=== PATIENT | male | born 1930 | race Caucasian/White ===

== ENCOUNTER 2016-07-07 09:23 | Inpatient (IN) | payer OTHER ==
[~2016-07-07] VITALS: Ht 185.4 cm; Wt 86.4 kg
--- NOTE | ~2016-07-07 | EKG ---
[address] [address] ELECTROCARDIOGRAM REPORT Name: KENNEY MCNULTY Room #: 215-P ADM IN M.R.#: [id number] Admission: 07/07/16 Attend Phys: Nba Leon MD Discharge: Date of : [birth year] Report #: [id number] THIS REPORT FOR: //name// [facility] ED Test Date: 2016-07-07 Test Time: 09:57:56 Pat Name: KENNEY MCNULTY Department: Room: 215 Gender: M Nylon Operator: Sara URRUTIA : 1930 Requested By: Keyla Paiz Order Number: [id number] MD: Tulio Duong Measurements Intervals [place] Rate: 43 P: -45 [place]: QRS: -54 QRSD: 109 T: 16 QT: 470 QTc: 398 Interpretive Statements AV block, 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
--- NOTE | ~2016-07-07 | HC ---
[facility] [place] [address] CONSULTATION Name: HAMLETKENNEY Joyce Room #: 215-P [facility] IN ..#: [id number] Admission: 07/07/16 Attend Phys: Nba Leon MD Discharge: 07/12/16 Date of : [birth year] Report #: [id number] THIS REPORT FOR: //name// CC: Howard Leon DICTATED BY: Trinidad KAMINSKI DATE OF SERVICE: 07/10/2016 REASON FOR CONSULT: Left knee pain. CONSULTED BY: Dr. Ojeda. HISTORY OF PRESENT ILLNESS: The patient is an 86-year-old man with a history of hypertension and coronary artery disease, who presented to the emergency room with shortness of breath as he was being treated for syncope and chest pain. At the hospital, he complained of left knee pain that is progressively getting worse, in addition to swelling. 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 No current injury. Decrease of range of motion, increase of swelling in the last 2 weeks. Imaging of the left knee done at [facility] on 07/09/2016. Three views of the left knee demonstrated degenerative arthrosis of the left knee, with no acute appearing osseous findings. LABORATORY DATA: White blood cell count 7, platelet count 133. PAST SURGICAL HISTORY: Include AAA, knee surgery. PAST MEDICAL HISTORY: Hypertension, dyslipidemia, and peripheral vascular disease. SOCIAL HISTORY: The patient lives in an assisted living facility by himself. Denies alcohol or nicotine use. ASSESSMENT: With the left knee demonstrates +2 edema of the left knee, neurovascularly intact in the lower left extremity. Tender to palpation along the joint line of the left knee. Range of motion as follows -15 to 105 degrees. No noted. SKIN: Dry and intact and warm to touch. No redness. IMPRESSION: Left knee hemarthrosis with arthritis. PLAN: I have aspirated the knee and I obtained 35 mL of blood-tinged fluid, no [address] [address] CONSULTATION Name: KENNEY MCNULTY Room #: 215-P [facility] IN M.R.#: [id number] Admission: 07/07/16 Attend Phys: Nba Leon MD Discharge: 07/12/16 Date of : [birth year] Report #: [id number] cloudiness noted. In addition to the aspiration, I proceeded to inject with 80 mg of Depo-Medrol, as well as 0.5% of Marcaine 3 mL. Several minutes after the injection, the patient stated his knee felt much better. Injection was done under sterile technique and compression was applied immediately afterwards. The patient tolerated treatment well. We will follow up with the patient tomorrow. Thank you for the consult. <ELECTRONICALLY SIGNED> By: Andre Ramirez MD 07/28/16 1420 2249 171 Andre Ramirez MD /elena
--- NOTE | ~2016-07-07 | CATHLAB ---
[facility] [place] [address] INVASIVE PROCEDURE REPORT Name: KENNEY MCNULTY Room #: 215-P [facility] IN [facility]#: [id number] Admission: 07/07/16 Attend Phys: Nba Leon MD Discharge: Date of : [birth year] Date of Service: 07/10/16 1338 Report #: [id number] THIS REPORT FOR: //name// CC: Howard Leon DATE OF SERVICE: 07/10/2016 PROCEDURES: 1. Dual-chamber pacer implantation. 2. Supervision of conscious sedation. INDICATIONS: An 86-year-old gentleman with completely AV block 3.5 days post discontinuation of beta blockade. Symptomatic of syncope, lightheadedness and weakness. DEVICE: a. [employer] dual-chamber pacer model [id number], serial number [id number]. b. Right atrial lead, [employer] , serial number [id number]. c. Right ventricular lead, [employer] , serial number [id number]. FINDINGS: a. P-wave amplitude 2.8 millivolts with an impedance of 320 ohms, a catheter threshold of 1.5 at a pulse width of 0.4. b. Right ventricular R-wave 10.2 with an impedance of 473, threshold of 0.75 and a pulse width of 0.4. SETTINGS: VVI mode 60 beats per minute will be changed to DDDR in the a.m. DESCRIPTION OF PROCEDURE: After informed consent was obtained, the patient was prepped and draped in usual sterile manner. Continuous oximetric and electrocardiographic monitoring ensued. A 2 mg of Versed and 25 of Demerol were given for conscious sedation. A 1% lidocaine was then instilled in the proposed incision site and periodically redosed subcutaneously. Utilizing standard sharp and blunt dissection, a pocket was generated and subclavian vein was accessed in a modified Seldinger 2-stick technique. Leads were then placed fluoroscopically; capture and sensing thresholds were then verified. The device, skin, antibiotic pocket were then irrigated with antibiotic solution. The device was then placed in the chest and 3-layer closure ensued with deep fascial in subcutaneous levels with nonabsorbable running locking stitch and the skin was a 4-0 absorbable subcuticular. Dermabond was then utilized on the skin externally 4 x 4 Op-site were placed. No complications. [address] [address] INVASIVE PROCEDURE REPORT Name: KENNEY MCNULTY Room #: 215-P [facility] IN ..#: [id number] Admission: 07/07/16 Attend Phys: Nba Leon MD Discharge: Date of : [birth year] Date of Service: 07/10/16 1338 Report #: [id number] ESTIMATED BLOOD LOSS: Less than 10 mL. <ELECTRONICALLY SIGNED> By: Bernard Villarreal MD 07/11/16 2224 1338 2322 Bernard Villarreal MD /nt
--- NOTE | ~2016-07-07 | 2DMMODE ---
[facility] [place] [address] 2 D/M-MODE ECHOCARDIOGRAM Name: HAMLETKENNEY Cook Room #: 215-P [facility]#: [id number] Admission: 07/07/16 Attend Phys: Nba Leon MD Discharge: Date of : [birth year] Date of Service: 07/08/16 0903 Report #: [id number] THIS REPORT FOR: //name// Transthoracic Echocardiography Ordering physician: Nba Leon Referring physician: Howard Sinclair [employer] Music Director: Aysha Rehman Indications/History: Third degree heart block, short of breath, CHF. Hx: COPD, CAD, HTN, HLP BP: 174 / HR: 43bpm Height: 73in Weight: 200.6lb 38 Study data: M-mode, complete 2D, complete spectral Doppler, and color Doppler. Location: Bedside. Routine. Image quality was adequate. 2D measurements Normal Normal LVID ED 48mm 36-57 IVS ED 13.6mm 6-11 LVID ES 26.4mm 23-40 LVPW ED 14.4mm 6-11 LA volume 34ml/m2 16-28 AoRoot diam 37mm 21-37 index ED LVOT diameter 23mm 18-23 Findings: Left ventricle: The cavity size was normal. Wall thickness was increased in a pattern of mild LVH. Systolic function was hyperdynamic. The estimated ejection fraction was in the range of 70%. Wall motion was normal. Increased flow velocities noted near the LVOT with a peak pressure gradient of 43mmHg. Right ventricle: The cavity size was normal. Systolic function was normal. Right atrium: The atrium was normal in size. Left atrium: The atrium was mildly dilated. Volume index: 34ml/m2 (S). Aortic valve: Thickened andmoderate to severelycalcified [facility] [address] [place] [address] 2 D/M-MODE ECHOCARDIOGRAM Name: KENNEY MCNULTY Room #: 215-P [facility] IN Bib#: [id number] Admission: 07/07/16 Attend Phys: Nba Leon MD Discharge: Date of : [birth year] Date of Service: 07/08/16 0903 Report #: [id number] leaflets. Doppler: There was moderate stenosis. Valve area by continuity equation is 1.3cm2. Mild regurgitation. Peak velocity: 519.6cm/s (S). Mean gradient: 58.1mm Hg (S). Peak gradient: 108mm Hg (S). Mitral valve: Moderately calcified annulus. Moderately thickened leaflets . Doppler: The findings are consistent with verymild stenosis. Mild regurgitation. Peak E-wave velocity: 153.8cm/s. Peak gradient: 9.5mm Hg (D). Peak A-wave velocity: 164.6cm/s. Tricuspid valve: Structurally normal valve. Doppler: There was no evidence for stenosis. Mild regurgitation. Regurgitant peak velocity: 320.6cm/s. Peak RV-RA gradient: 41mm Hg (S). Pulmonic valve: Structurally normal valve. Doppler: There was no evidence for stenosis. Mild regurgitation. Pericardium: A small pericardial effusion was identified. Pleura: There was a right pleural effusion. There was a left pleural effusion. Aorta: Aortic root: The aortic root was normal in size. Pulmonary artery: Systolic pressure was estimated to be 46mm Hg. Diastolic function: Doppler parameters are consistent with abnormal left ventricular relaxation (grade 1 diastolic dysfunction). Systemic veins: Inferior vena cava: The vessel was normal in size; the respirophasic diameter changes were in the normal range (= 50%). Conclusions 1. Left ventricle: The cavity size was normal. Wall thickness was increased in a pattern of mild LVH. Systolic function was hyperdynamic. The estimated ejection fraction was in the range of 70%. Wall motion was normal. 2. Left atrium: The atrium was mildly dilated. 3. Aortic valve: Thickened andmoderate to severelycalcified leaflets. There was moderate stenosis. Valve area by continuity equation is 1.3cm2. Mild regurgitation. 4. Mitral valve: Moderately calcified annulus. Moderately thickened leaflets . Mild regurgitation. 5. Pulmonic valve: Mild regurgitation. 6. Tricuspid valve: Mild regurgitation. 7. Pericardium, extracardiac: A small pericardial effusion [facility] [address] [place] [address] 2 D/M-MODE ECHOCARDIOGRAM Name: KENNEY MCNULTY Room #: 215-P [facility] IN [facility]#: [id number] Admission: 07/07/16 Attend Phys: Nba Leon MD Discharge: Date of : [birth year] Date of Service: 07/08/16 0903 Report #: [id number] was identified. There was a right pleural effusion. There was a left pleural effusion. 8. Pulmonary arteries: Systolic pressure was estimated to be 46mm Hg. <ELECTRONICALLY SIGNED> By: Bernard Villarreal MD 07/08/16 1015 0903 Beth Villarreal MD /shayna
--- NOTE | ~2016-07-07 | EKG ---
[address] [place] [address] ELECTROCARDIOGRAM REPORT Name: KENNEY MCNULTY Room #: 215-P [facility] IN M.R.#: [id number] Admission: 07/07/16 Attend Phys: Nba Leon MD Discharge: 07/12/16 Date of : [birth year] Report #: [id number] THIS REPORT FOR: //name// [facility] Test Date: 2016-07-11 Test Time: 07:02:35 Pat Name: KENNEY MCNULTY Department: Room: 215 Gender: M Raw Material Planner: isaac : 1930 Requested By: Bernard Villarreal Order Number: [id number] MD: Osmel Ibarra Measurements Intervals [place] Rate: 60 P: -59 [place]: 88 QRS: -54 QRSD: 127 T: 119 QT: 477 QTc: 477 Interpretive Statements Ventricular-paced rhythm No further analysis attempted due to paced rhythm no previous ECGs available for comparison Electronically Signed On 07-14-2016 8:17:06 HEALTH AND SAFETY INSTRUCTOR by Osmel Ibarra [email or web address] <ELECTRONICALLY SIGNED> By: Osmel Ibarra MD, [facility] 07/14/16 0817 1 1 Osmel Ibarra MD, [facility] /EPI
--- NOTE | ~2016-07-07 | HC ---
[facility] [address] CONSULTATION Name: HAMLETKENNEY Joyce Room #: 215-P [facility] IN ..#: [id number] Admission: 07/07/16 Attend Phys: Nba Leon MD Discharge: Date of : [birth year] Report #: [id number] THIS REPORT FOR: //name// CC: Howard Leon DATE OF SERVICE: 07/07/2016 HISTORY OF PRESENT ILLNESS: This is a very pleasant 86-year-old male patient presented because of increasing shortness of breath. The patient has a history of hypertension, dyslipidemia, peripheral vascular disease and coronary artery disease in the chart, but when discussing with him, he denies any cardiac history in the past. He is not having any significant orthopnea or PND, but noticed that he had been having episodes of blacking out for approximately 2-3 weeks. These are not positional in nature and not associated with coughing or anything else. He mentioned that he would lose consciousness and this was brought up by his children. He did not have any chest pain, pressure, tightness, or heaviness. No orthopnea, PND, syncope or near syncope. He presented to the emergency room and was found to be in complete heart block with a satisfactory blood pressure. Apparently, there is an infiltrate on his chest x-ray and had an elevated BNP. He denies any recent fever or chills, but has had a nonproductive cough. No syncope or near syncope prior to the last 2-3 weeks. PAST MEDICAL HISTORY: Significant for: 1. Hypertension. 2. Dyslipidemia. 3. Peripheral vascular disease. PAST SURGICAL HISTORY: The abdominal aortic aneurysm. SOCIAL HISTORY: The patient lives in an assisted living facility by himself. Does not smoke, does not consume alcohol or recreational drugs. ELECTROCARDIOGRAM: Completely heart block with a narrow junctional escape rhythm at 45-50. MEDICATIONS AT HOME: Metoprolol, lisinopril, hydrochlorothiazide, Proscar, alpha rayo, Zetia, and Mevacor. REVIEW OF SYSTEMS: Except for symptoms previously mentioned and those commensurate with comorbid states, the 10-point review of system is negative. RADIOLOGIC: Evidence of a left basilar infiltrate with pleural effusion present. [facility] [address] [place] [address] CONSULTATION Name: KENNEY MCNULTY Room #: 215-P [facility] IN ..#: [id number] Admission: 07/07/16 Attend Phys: Nba Leon MD Discharge: Date of : [birth year] Report #: [id number] LABORATORY DATA: Demonstrates a BUN and creatinine of 34 and 2.1 respectively. Hemoglobin 11.7, hematocrit 36.3 with a platelet count of 171,000. Troponin is 0.09. PHYSICAL EXAMINATION: GENERAL: Shows a white male, resting comfortably, in no acute distress. HEENT: Normocephalic, atraumatic. Pupils are equal, round, reactive to light and accommodation. Extraocular muscles are intact. Sclerae and conjunctivae are anicteric. NECK: JVD is normal. Carotid upstrokes are bilaterally symmetrical. No bruits are heard. No thyromegaly. No lymphadenopathy. LUNGS: Nontachypneic. No wheezes or rhonchi are noted, but there appears to be some basilar crepitance with dry crackles. CARDIAC: Demonstrates a regular rhythm. First heart sound is variable. Systolic murmur grade 2/6 is noted from the base of the apex to the axilla. No diastolic murmurs are identified. ABDOMEN: Soft, nontender, nondistended. Normal bowel sounds. EXTREMITIES: Without cyanosis, clubbing or edema. Distal pulses are intact. DTR symmetrical. NEUROLOGIC: Cranial nerves 2-12 are grossly normal and symmetrical. PSYCHIATRIC: Alert, oriented with normal affect. SKIN: Warm and dry. IMPRESSION: 1. Shortness of breath, multifactorial, the infiltrate is clearly an issue and that will be addressed by primary care. 2. Third-degree heart block. I suspect this what has been the issue over the last several weeks with syncope and near syncope. For the moment, I am going to stop the metoprolol and I am going to monitor since his blood pressure was satisfactory. We will see if the beta rayo withdraw will avoid permanent pacing, though we will make that final decision on . If he needs a pacer, we will implant it on Wednesday. If not, then we will continue with medical regimen. I am awaiting the echocardiogram to be performed. 3. Hypertension, elevated here now, it is clearly a reflex response to the bradyarrhythmias. I am going to put him back on his medicines as he has not had any of his medications today, but only the lisinopril, the hydrochlorothiazide and the alpha rayo. 4. Peripheral vascular disease, has a history femoral stent and an abdominal aortic aneurysm repair in the past. 5. Hypoxemia, multifactorial, see above. 6. Elevated BNP, but he has abnormal creatinine and he has an infiltrate, both [facility] [address] [place] [address] CONSULTATION Name: KENNEY MCNULTY Room #: 215-P ADM IN M.R.#: [id number] Admission: 07/07/16 Attend Phys: Nba Leon MD Discharge: Date of : [birth year] Report #: [id number] of which can cause this. He is lying flat in bend without any tachypnea and clinical congestive heart failure is not evident. <ELECTRONICALLY SIGNED> By: Bernard Villarreal MD 07/08/16 0929 1852 0151 Bernard Villarreal MD /nt
[~2016-07-07 09:23] MED LIST: [UNRECOGNIZED DRUG - REMARK]
[2016-07-07 09:31] VITALS: BP 173/59
[2016-07-07 09:57] LABS: ABSOLUTE NEUTROPHILS 7.2 thou/uL (1.4-8.2); BASOPHILS 0.4 % (0.0-2.0); EOSINOPHILS 0.9 % (0.0-3.0); HEMATOCRIT 36.3 % (42.0-52.0); HEMOGLOBIN 11.7 gm/dL (14.0-18.0); LYMPHOCYTES 16.7 % (24.0-44.0); MANUAL DIFF NO; MCH 29.1 pg (26.0-34.0); MCHC 32.2 % (28.0-37.0); MCV 90.1 fL (80.0-100.0); MONOCYTES 7.6 % (1.0-8.0); PLATELET COUNT 171 thou/uL (150-400); POLYS 74.4 % (36.0-66.0); RBC 4.03 mil/uL (4.50-6.00); WBC 9.7 thou/uL (4.0-11.0)
[2016-07-07 10:02] LABS: CALCIUM 9.3 mg/dL (8.5-10.1); CREATININE 2.1 mg/dL (0.6-1.3); POTASSIUM 4.2 mmol/L (3.5-5.1)
[2016-07-07 10:02] LABS: ABG SAMPLE TYPE ARTERIAL; BE(vivo) -1.2 mmol/L (-2 to +3); HCO3 25.2 mmol/L (22.0-26.0); LACTATE 1.61 mmol/L (0.5-2.0); O2(CT) 15.9 mL/dL (15.0-23.0); PCO2 49.3 mmHg (35.0-45.0); PO2 85.4 mmHg (80.0-100.0); STICK SITE L.RADIAL; pH 7.326 (7.360-7.450); sO2 95.7 % (92.0-98.0); tCO2 26.7 mmol/L (24.0-30.0)
[2016-07-07 10:15] LABS: ALBUMIN 2.7 g/dL (3.4-5.0); TOTAL BILIRUBIN 0.4 mg/dL (<0.1-1.0); TOTAL PROTEIN 6.1 g/dL (6.4-8.2); TROPONIN-I 0.09 ng/mL (<0.04-0.07)
[2016-07-07 16:50] VITALS: BP 199/73
[2016-07-07] MEDS ORDERED: UNICOMPLEX M TA1 TA1 PO (18:04)
[2016-07-07] MEDS ORDERED: HYDROCHLOROTHIA25 M2 PO (18:04)
[2016-07-07] MEDS ORDERED: FINASTERIDE5 MG PO (18:04)
[2016-07-07] MEDS ORDERED: ZETIA10 MG PO (18:04)
[2016-07-07] MEDS ORDERED: LISINOPRIL10 MG PO (18:04)
[2016-07-07] MEDS ORDERED: ASPIR 8181 MG PO (18:05)
[2016-07-07] MEDS ORDERED: CARDURA4 MG PO (18:05)
[2016-07-07] MEDS ORDERED: LOVASTATIN 20 M20 MG PO (18:05)
[2016-07-07 19:40] VITALS: BP 208/54
[2016-07-08 00:01] VITALS: BP 184/42
[2016-07-08 04:10] LABS: HEMATOCRIT 29.2 % (42.0-52.0); MCHC 32.3 % (28.0-37.0); RBC 3.25 mil/uL (4.50-6.00); RDW 15.8 % (10.5-14.5)
[2016-07-08 04:12] VITALS: BP 174/38
[2016-07-08 04:19] LABS: CALCIUM 8.6 mg/dL (8.5-10.1); POTASSIUM 4.2 mmol/L (3.5-5.1)
[2016-07-08 04:30] LABS: HEMOGLOBIN 9.4 gm/dL (14.0-18.0)
[2016-07-08 07:10] VITALS: BP 164/45
[2016-07-08 11:40] VITALS: BP 163/72
[2016-07-08 16:10] VITALS: BP 187/47
[2016-07-08 21:04] VITALS: BP 180/90
[2016-07-09 06:07] VITALS: BP 182/94
[2016-07-09 09:30] VITALS: BP 141/86
[2016-07-09 11:25] VITALS: BP 156/39
[2016-07-09 12:27] VITALS: BP 142/66
[2016-07-09 17:40] VITALS: BP 157/36
[2016-07-09 20:02] VITALS: BP 154/57
[2016-07-10] VITALS (10 sets, daily range): BP systolic 131–182; BP diastolic 42–66
[2016-07-10 05:04] LABS: ABSOLUTE NEUTROPHILS 3.4 thou/uL (1.4-8.2); BASOPHILS 0.4 % (0.0-2.0); EOSINOPHILS 3.6 % (0.0-3.0); HEMATOCRIT 30.1 % (42.0-52.0); HEMOGLOBIN 9.6 gm/dL (14.0-18.0); LYMPHOCYTES 13.5 % (24.0-44.0); MCHC 31.9 % (28.0-37.0); MCV 90.9 fL (80.0-100.0); MONOCYTES 9.1 % (1.0-8.0); PLATELET COUNT 121 thou/uL (150-400); POLYS 73.4 % (36.0-66.0); RBC 3.31 mil/uL (4.50-6.00); RDW 15.6 % (10.5-14.5); WBC 4.6 thou/uL (4.0-11.0)
[2016-07-10 05:18] LABS: MANUAL DIFF NO
[2016-07-10 05:27] LABS: CALCIUM 8.9 mg/dL (8.5-10.1); POTASSIUM 4.3 mmol/L (3.5-5.1)
[2016-07-10 06:36] LABS: LARGE PLATELETS OCCASIONAL
[2016-07-11 03:43] VITALS: BP 150/59
[2016-07-11 08:00] VITALS: BP 130/50
[2016-07-11 08:25] VITALS: BP 130/46
[2016-07-11 09:17] LABS: HEMATOCRIT 31.7 % (42.0-52.0); HEMOGLOBIN 10.3 gm/dL (14.0-18.0); MCH 29.2 pg (26.0-34.0); MCHC 32.6 % (28.0-37.0); MCV 89.6 fL (80.0-100.0); PLATELET COUNT 141 thou/uL (150-400); RBC 3.54 mil/uL (4.50-6.00); RDW 15.3 % (10.5-14.5); WBC 5.2 thou/uL (4.0-11.0)
[2016-07-11 09:19] LABS: MANUAL DIFF YES
[2016-07-11 09:31] LABS: ALBUMIN 2.3 g/dL (3.4-5.0); CALCIUM 9.1 mg/dL (8.5-10.1); CREATININE 2.3 mg/dL (0.6-1.3); POTASSIUM 5.1 mmol/L (3.5-5.1); TOTAL BILIRUBIN 0.3 mg/dL (<0.1-1.0); TOTAL PROTEIN 5.6 g/dL (6.4-8.2)
[2016-07-11 09:56] LABS: ABSOLUTE NEUTROPHILS 4.9 thou/uL (1.4-8.2); ANISOCYTOSIS 1+; POIKILOCYTOSIS SLIGHT; POLYCHROMASIA OCCASIONAL; TOTAL CELL COUNT 100
[2016-07-11 12:11] VITALS: BP 120/50
[2016-07-11 20:00] VITALS: BP 155/58
[2016-07-11 23:59] VITALS: BP 151/60
[2016-07-12 04:05] LABS: HEMATOCRIT 30.2 % (42.0-52.0); HEMOGLOBIN 9.7 gm/dL (14.0-18.0); MCHC 32.1 % (28.0-37.0); MCV 90.6 fL (80.0-100.0); PLATELET COUNT 133 thou/uL (150-400); RBC 3.34 mil/uL (4.50-6.00); RDW 15.5 % (10.5-14.5)
[2016-07-12 04:15] LABS: MANUAL DIFF YES
[2016-07-12 04:33] LABS: POTASSIUM 4.8 mmol/L (3.5-5.1)
[2016-07-12 04:34] LABS: ALBUMIN 2.2 g/dL (3.4-5.0); CALCIUM 8.9 mg/dL (8.5-10.1); CREATININE 2.5 mg/dL (0.6-1.3); TOTAL BILIRUBIN 0.2 mg/dL (<0.1-1.0); TOTAL PROTEIN 5.3 g/dL (6.4-8.2)
[2016-07-12 05:18] VITALS: BP 153/64
[2016-07-12 06:23] LABS: ABSOLUTE NEUTROPHILS 6.6 thou/uL (1.4-8.2); PLATELET ESTIMATE NORMAL; TOTAL CELL COUNT 100
[2016-07-12 08:10] VITALS: BP 164/61
[2016-07-12 11:39] VITALS: BP 131/46
[2016-07-12] MEDS ORDERED: HYDROCODON-ACE1 EAC7 PO (13:51)
[2016-07-12] MEDS ORDERED: NORCO 5-325 TA1 EACH PO (14:05)
[2016-07-12] MEDS ORDERED: TOPROL XL25 MG PO (14:20)
[2016-07-12 15:22] VITALS: BP 146/59
== END 2016-07-12 16:47 | DRG 242 ==
LOC: ER 09:23 → EROBS 10:31 → 2N 10:31
PROVIDERS: Emergency Medicine; Hospitalist; Internal Medicine; Nurse Practitioner Family; Physician Assistant
PROC: 02HK3JZ Insertion of Pacemaker Lead into Right Ventricle, Percutaneous Approach (ICD-10-PCS; principal; 2016-07-10)
PROC: 0S9D3ZX Drainage of Left Knee Joint, Percutaneous Approach, Diagnostic (ICD-10-PCS; principal; 2016-07-10)
PROC: 02H63JZ Insertion of Pacemaker Lead into Right Atrium, Percutaneous Approach (ICD-10-PCS; principal; 2016-07-10)
PROC: 0JH606Z Insertion of Pacemaker, Dual Chamber into Chest Subcutaneous Tissue and Fascia, Open Approach (ICD-10-PCS; principal; 2016-07-10)
DX: I44.2 Atrioventricular block, complete (principal); I50.33 Acute on chronic diastolic (congestive) heart failure; J96.01 Acute respiratory failure with hypoxia; E43 Unspecified severe protein-calorie malnutrition; J15.6 Pneumonia due to other Gram-negative bacteria; N17.9 Acute kidney failure, unspecified; I13.0 Hypertensive heart and chronic kidney disease with heart failure and stage 1 through stage 4 chronic kidney disease, or unspecified chronic kidney disease; R78.81 Bacteremia; M25.062 Hemarthrosis, left knee; J44.9 Chronic obstructive pulmonary disease, unspecified; Z79.82 Long term (current) use of aspirin; Z79.899 Other long term (current) drug therapy; E78.5 Hyperlipidemia, unspecified; I73.9 Peripheral vascular disease, unspecified; I25.10 Atherosclerotic heart disease of native coronary artery without angina pectoris; N18.9 Chronic kidney disease, unspecified; Z68.25 Body mass index [BMI] 25.0-25.9, adult; I35.0 Nonrheumatic aortic (valve) stenosis; M17.12 Unilateral primary osteoarthritis, left knee
CPT/HCPCS: 10081

== ENCOUNTER 2016-07-14 23:20 | Inpatient (IN) | payer OTHER ==
[~2016-07-14] VITALS: Ht 182.9 cm; Wt 85.7 kg
--- NOTE | ~2016-07-14 | EKG ---
[address] [place] [address] ELECTROCARDIOGRAM REPORT Name: KENNEY MCNULTY Room #: 451-P ADM IN M.R.#: [id number] Admission: 07/15/16 Attend Phys: Aurea Bailey Discharge: Date of : [birth year] Report #: [id number] THIS REPORT FOR: //name// [facility] ED Test Date: 2016-07-14 Test Time: 23:28:04 Pat Name: KENNEY MCNULTY Department: Room: [facility] Gender: M Technical Support Technician: GERARDO : 1930 Requested By: Darline Guthrie Order Number: [id number] MD: Tulio Duong Measurements Intervals [place] Rate: 83 P: 29 [place]: 180 QRS: -47 QRSD: 127 T: 122 QT: 388 QTc: 456 Interpretive Statements Atrial-sensed ventricular-paced rhythm No further analysis attempted due to paced rhythm Compared to ECG 07/11/2016 07:02:35 No significant changes Electronically Signed On 07-15-2016 8:23:01 CHIMNEY MECHANIC by Tulio Duong [email or web address] <ELECTRONICALLY SIGNED> By: Tulio Duong MD 07/15/16 0823 27 27 Tulio Duong MD /KEO
--- NOTE | ~2016-07-14 | HC ---
[facility] [place] [address] CONSULTATION Name: HAMLETKENNEY Cook Room #: 451-P [facility] IN ..#: [id number] Admission: 07/15/16 Attend Phys: Aurea Bailey Discharge: Date of : [birth year] Report #: [id number] THIS REPORT FOR: //name// CC: Howard Bailey HISTORY OF PRESENT ILLNESS: This is a very pleasant 86-year-old gentleman with known sick sinus syndrome and had AV block last week and underwent permanent pacemaker implantation. The patient presented with some degree of heart failure and was diuresed and felt to be secondary to the AV block. He had been having symptoms for quite some time prior to that. He was discharged in improved and stable condition post pacer implantation and apparently after discharge in the intermediate, he started developing more shortness of breath. He stated stating that he felt lightheaded at times, but no palpitations per se. On the day of transfer, on admission, he was found to have a rapid ventricular response. Upon evaluation in the emergency room, he was in atrial fibrillation with rapid rate, rate was slowed by use of intravenous diltiazem. The patient denied any chest pain, pressure, tightness, heaviness or fullness at this time. PAST MEDICAL HISTORY: Significant for: 1. Hypertension. 2. AV block. 3. Degenerative joint disease. 4. History of community-acquired pneumonia. 5. Chronic kidney disease. 6. Coronary artery disease. ALLERGIES: No known drug allergies. PAST SURGICAL HISTORY: Significant for: 1. Permanent pacemaker implantation. 2. AAA repair 10 years ago. 3. Left knee injections. 4. Vascular stent placed in the leg. MEDICATIONS: Hydrocodone, metoprolol 25 b.i.d., hydrochlorothiazide, multivitamin, Zetia, finasteride, lovastatin, doxazosin, and aspirin. SOCIAL HISTORY: The patient is a former smoker, does not currently smoke now. Does not consume alcohol. Does not follow a particular exercise regimen or dietary restriction. REVIEW OF SYSTEMS: Except for symptoms previously mentioned and those commensurate with comorbid states, the 10-point review systems negative. LABORATORY DATA: H and H is 9.4 and 29.2 with a platelet count of 134,000. BUN and creatinine is 54 and 2.0. Potassium is 5.6. [address] [address] CONSULTATION Name: HAMLETKENNEY Joyce Room #: 451-P [facility] IN ..#: [id number] Admission: 07/15/16 Attend Phys: Aurea Bailey Discharge: Date of : [birth year] Report #: [id number] PHYSICAL EXAMINATION: GENERAL: Well-developed white male, resting comfortably, lying flat on bed, in no acute distress. HEENT: Normocephalic, atraumatic. Pupils are equal, round, reactive to light and accommodation. Extraocular muscles are intact. Sclerae and conjunctivae are anicteric. NECK: JVD is normal. Carotid upstrokes are bilaterally symmetrical. No bruits are heard. No thyromegaly. No lymphadenopathy. LUNGS: Clear to auscultation. No wheezes, rhonchi or crackles. No CVA tenderness. CARDIAC: Demonstrates a regular rhythm. Soft systolic murmur at the apex. No diastolic murmurs are noted. ABDOMEN: Soft, nontender, nondistended. Normal bowel sounds. EXTREMITIES: Without cyanosis, clubbing or edema. Distal pulses are intact. DTR symmetrical. NEUROLOGIC: Cranial nerves 2-12 are grossly normal and symmetrical. PSYCHIATRIC: Alert, oriented with normal affect. SKIN: Warm and dry. IMPRESSION: 1. Paroxysmal atrial fibrillation with rapid ventricular response. 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 In view of this, we will just augment his rate control. We will need to consider cardioversion or anticoagulation since I am uncertain how long he has been in atrial fibrillation. We will interrogate the device in the a.m., so that we can . 2. Hypertension. We need to optimize medications, control the blood pressure much more fully. 3. Coronary artery disease, no evidence of any type of dysfunction at the present time, continue on the current regimen. 4. Degenerative joint disease, on medications. <ELECTRONICALLY SIGNED> By: Bernard Villarreal MD 07/16/16 1133 23 0057 Bernard Villarreal MD /nt
[~2016-07-14 23:20] MED LIST changes: +ASPIR 8181 MG PO; +CARDURA4 MG PO; +FINASTERIDE5 MG PO; +HYDROCHLOROTHIA25 M2 PO; +HYDROCODON-ACE1 EAC7 PO; +LISINOPRIL10 MG PO; +LOVASTATIN 20 M20 MG PO; +NORCO 5-325 TA1 EACH PO; +TOPROL XL25 MG PO; +UNICOMPLEX M TA1 TA1 PO; +ZETIA10 MG PO
[2016-07-14 23:21] VITALS: BP 132/61
[2016-07-14 23:54] LABS: ABSOLUTE NEUTROPHILS 3.4 thou/uL (1.4-8.2); BASOPHILS 0.3 % (0.0-2.0); EOSINOPHILS 1.8 % (0.0-3.0); HEMATOCRIT 29.2 % (42.0-52.0); HEMOGLOBIN 9.4 gm/dL (14.0-18.0); LYMPHOCYTES 16.6 % (24.0-44.0); MCH 28.9 pg (26.0-34.0); MCHC 32.3 % (28.0-37.0); MCV 89.4 fL (80.0-100.0); MONOCYTES 8.6 % (1.0-8.0); PLATELET COUNT 134 thou/uL (150-400); POLYS 72.7 % (36.0-66.0); RBC 3.26 mil/uL (4.50-6.00); RDW 15.4 % (10.5-14.5); WBC 4.7 thou/uL (4.0-11.0)
[2016-07-14 23:56] LABS: MANUAL DIFF NO
[2016-07-15] VITALS (8 sets, daily range): BP systolic 144–182; BP diastolic 59–78
[2016-07-15 00:02] LABS: POTASSIUM 5.6 mmol/L (3.5-5.1)
[2016-07-16 03:56] VITALS: BP 162/68
[2016-07-16 03:58] LABS: HEMATOCRIT 31.2 % (42.0-52.0); HEMOGLOBIN 10.1 gm/dL (14.0-18.0); MCHC 32.4 % (28.0-37.0); MCV 89.4 fL (80.0-100.0); RBC 3.49 mil/uL (4.50-6.00); RDW 15.1 % (10.5-14.5); WBC 5.8 thou/uL (4.0-11.0)
[2016-07-16 04:16] LABS: CALCIUM 9.7 mg/dL (8.5-10.1); CREATININE 1.8 mg/dL (0.6-1.3); POTASSIUM 5.2 mmol/L (3.5-5.1)
[2016-07-16 07:49] VITALS: BP 164/65
[2016-07-16 12:09] VITALS: BP 144/51
[2016-07-16 15:44] VITALS: BP 173/70
[2016-07-16 20:10] VITALS: BP 159/72
[2016-07-17 05:16] VITALS: BP 149/76
[2016-07-17 06:30] LABS: HEMATOCRIT 29.1 % (42.0-52.0); HEMOGLOBIN 9.2 gm/dL (14.0-18.0); MCH 28.8 pg (26.0-34.0); MCHC 31.6 % (28.0-37.0); MCV 91.1 fL (80.0-100.0); RBC 3.19 mil/uL (4.50-6.00); RDW 15.1 % (10.5-14.5); WBC 3.9 thou/uL (4.0-11.0)
[2016-07-17 07:00] LABS: ALBUMIN 2.5 g/dL (3.4-5.0); CALCIUM 9.4 mg/dL (8.5-10.1); CREATININE 1.7 mg/dL (0.6-1.3); PHOSPHORUS 4.3 mg/dL (2.5-4.9)
[2016-07-17 07:02] LABS: TROPONIN-I 0.68 ng/mL (<0.04-0.07)
[2016-07-17 07:29] VITALS: BP 128/51
[2016-07-17] MEDS ORDERED: METOPROLOL SUCC50 MG PO (12:23)
[2016-07-17] MEDS ORDERED: ASPIRIN EC325 M1 PO (12:23)
[2016-07-17] MEDS ORDERED: PAIN & FEVER325 MG PO (12:23)
[2016-07-17] MEDS ORDERED: AMBIEN 5 MG TABL5 M1 PO (12:24)
[2016-07-17] MEDS ORDERED: PLAVIX 75 MG TA75 M1 PO (12:30)
[2016-07-17] MEDS ORDERED: SEROQUEL 25 MG25 M1 PO (12:30)
[2016-07-17 12:50] VITALS: BP 135/36
[2016-07-17 16:14] VITALS: BP 158/63
== END 2016-07-17 18:51 | DRG 291 ==
LOC: ER 23:20 → EROBS 07-15 00:50 → 4W 07-15 00:50
PROVIDERS: Emergency Medicine; Hospitalist
DX: I13.0 Hypertensive heart and chronic kidney disease with heart failure and stage 1 through stage 4 chronic kidney disease, or unspecified chronic kidney disease (principal); I50.21 Acute systolic (congestive) heart failure; I48.0 Paroxysmal atrial fibrillation; E87.5 Hyperkalemia; I49.5 Sick sinus syndrome; N18.9 Chronic kidney disease, unspecified; I44.30 Unspecified atrioventricular block; I25.10 Atherosclerotic heart disease of native coronary artery without angina pectoris; Z66 Do not resuscitate; M19.90 Unspecified osteoarthritis, unspecified site; R09.02 Hypoxemia; F03.90 Unspecified dementia, unspecified severity, without behavioral disturbance, psychotic disturbance, mood disturbance, and anxiety; Z95.0 Presence of cardiac pacemaker; Z79.02 Long term (current) use of antithrombotics/antiplatelets; Z87.891 Personal history of nicotine dependence; Z87.01 Personal history of pneumonia (recurrent); Z79.899 Other long term (current) drug therapy; Z79.82 Long term (current) use of aspirin
CPT/HCPCS: 10045